=== PATIENT | female | born 1970 | race Caucasian/White ===

== ENCOUNTER 2017-04-25 21:36 | Emergency (ER) | payer OTHER ==
[~2017-04-25] VITALS: Ht 162.6 cm; Wt 97.6 kg
[2017-04-25 22:09] VITALS: BP 149/86
--- NOTE | 2017-04-26 01:10 | NUR ---
PATIENT LEFT WITHOUT BEING SEEN BY DR. MAYNARD. NO FURTHER CARE PROVIDED FOR PATIENT.
== END 2017-04-26 01:10 | disposition left against medical advice (07) ==
LOC: MED 21:36
DX: M54.9 Dorsalgia, unspecified (principal); Z53.21 Procedure and treatment not carried out due to patient leaving prior to being seen by health care provider

== ENCOUNTER 2018-08-23 11:16 | Emergency (ER) | payer OTHER ==
[~2018-08-23] VITALS: Ht 154.9 cm; Wt 98.9 kg
[2018-08-23 11:19] VITALS: BP 117/67
[2018-08-23] MEDS ORDERED: IBUP-2213 PO (11:19)
[2018-08-23 11:40] VITALS: BP 148/79
--- NOTE | 2018-08-23 11:49 | NUR ---
48 Y F BIB SELF C/O LEFT THIGH PAIN X LAST NIGHT. RADIATING DOWN L LEG. DENIES TRAUMA. PAIN 03/11. -N/V/D. -REDNESS, -SWELLING, -ECCHYMOSIS. BED SI DOWN, LOCKED, BED RAIL X 1, ERMD NOTIFIED. MED HX: C SECTION X2, GALL BLADDER REMOVAL RX- NONE
--- NOTE | 2018-08-23 12:20 | NUR ---
DR BARRETT AT BEDSIDE
[2018-08-23 12:25] VITALS: BP 145/78
--- NOTE | 2018-08-23 12:25 | NUR ---
Patient discharged with v/s stable BY DR BARRETT. Written and verbal after care instructions given and explained. Patient alert, oriented and verbalized understanding of instructions. Ambulatory with steady gait. All questions addressed prior to discharge. ID band removed. Patient advised to follow up with PMD. Rx of NAPROSYN given. Patient educated on indication of medication including possible reaction and side effects. Opportunity to ask questions provided and answered.
== END 2018-08-23 12:25 | disposition home or self-care (01) ==
LOC: MED 11:16
DX: D17.24 Benign lipomatous neoplasm of skin and subcutaneous tissue of left leg (principal); Z90.49 Acquired absence of other specified parts of digestive tract
CPT/HCPCS: 99283

== ENCOUNTER 2022-09-06 11:33 | Outpatient (CLI) | payer OTHER ==
[~2022-09-06] VITALS: Ht 154.9 cm; Wt 99.8 kg
== END 2022-09-06 23:59 | disposition home or self-care (01) ==
LOC: MLB 11:33 → EDSTATUS 09-09 08:20
PROVIDERS: ATTEND Internal Medicine Gastroenterology
DX: Z01.818 Encounter for other preprocedural examination (principal); Z20.822 Contact with and (suspected) exposure to COVID-19

== ENCOUNTER 2022-10-04 06:44 | Day surgery (SDC) | payer OTHER ==
[~2022-10-04] VITALS: Ht 154.9 cm; Wt 99.8 kg
[2022-10-04] MEDS ORDERED: LIDOCAINE 2% 100 MG/5 ML UJET TP ONE (07:15)
[2022-10-04] MEDS ORDERED: fentaNYL citrate 0.05 MG/ML VIAL ONE (07:15)
[2022-10-04] MEDS ORDERED: fentaNYL citrate 0.05 MG/ML VIAL IVP ONE (08:25)
== END 2022-10-04 09:06 | disposition home or self-care (01) ==
LOC: MOR 06:44 → MMU 06:47 → MOR 09:06
PROVIDERS: ATTEND Internal Medicine Gastroenterology
DX: Z12.11 Encounter for screening for malignant neoplasm of colon (principal); E66.9 Obesity, unspecified; Z80.0 Family history of malignant neoplasm of digestive organs; Z90.49 Acquired absence of other specified parts of digestive tract; Z68.41 Body mass index [BMI] 40.0-44.9, adult
CPT/HCPCS: 45378; J3010